=== PATIENT | female | born 1970 | race African-American/Black ===

== ENCOUNTER → 2017-03-24 15:02 | Outpatient (CLI) | payer BC, MEDICAID | END | disposition home or self-care (01) | LOC: D.MRI 15:02 | DX: M25.562 Pain in left knee (principal) ==

== ENCOUNTER 2017-11-02 06:19 | Day surgery (SDC) | payer BC, MEDICAID ==
[2017-10-30 10:03] LABS: HEMATOCRIT 37.7 % (36.0-48.0); HEMOGLOBIN 12.4 g/dL (12-16); MCHC 32.9 g/dL (31.0-37.0); MCV 94.3 fL (80.0-100.0); MEAN PLATELET VOLUME 8.7 fL (7.4-10.4); RDW 11.8 % (11.5-14.5); WBC 4.1 10x3/uL (4.8-10.8)
[~2017-11-02] VITALS: Ht 172.7 cm; Wt 99.8 kg
[2017-11-02 06:07] VITALS: BP 122/89; Ht 172.7 cm; Wt 99.8 kg
[2017-11-02] MEDS ORDERED: MEPERIDINE HCL50 MG PO (08:29)
--- NOTE | 2017-11-02 10:55 | NUR ---
1050 DR. LORI VILLEGAS.
--- NOTE | 2017-11-02 11:33 | NUR ---
1120 DC INSTS GIVEN, VOICED UNDERSTANDING, RX GIVEN, VOICED UNDERSTANDING. 1130 CRUTCHES DELIVERED, STATES KNOWS HOW TO USE THESE, RELEASED IN WC WITH ESCORT.
--- NOTE | 2017-11-02 12:23 | OP ---
PATIENT NAME: VASU MAN MEDICAL RECORD: [id number] :72 LOCATION:[facility] ADMISSION DATE: SURGEON: RUTH SANDOVAL MD DATE OF OPERATION: 11/02/2017 PREOPERATIVE DIAGNOSIS: Medial meniscus tear of the left knee with Maddox's cyst. POSTOPERATIVE DIAGNOSIS: Medial meniscus tear of the left knee with Maddox's cyst. PROCEDURE: Arthroscopic partial medial meniscectomy with decompression of Maddox's cyst. SURGEON: Ruth Sandoval MD ANESTHESIA: General. INTRAOPERATIVE COMPLICATIONS: None. 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 It did appear to be a meniscal caused. There was no tibial chondromalacia. OPERATIVE SUMMARY IN DETAIL: After obtaining the appropriate preoperative orthopedic surgery consent as well as anesthetic consultation, evaluation and clearance, the patient was brought to the operating room and placed on the operating table in supine position. After general laryngeal mask was administered, tourniquet was placed about the proximal aspect of the right lower extremity. Right lower extremity was prepped and draped in routine sterile fashion. The leg was elevated and exsanguinated, tourniquet inflated to 350 mmHg. Routine inferolateral portal was established followed by superomedial portal and inferomedial portal. Diagnostic arthroscopy did reveal the above findings. Combination of arthroscopic resector as well as a meniscotome was utilized to debride the posterolateral corner of the medial meniscus back to stable meniscal elements. A small chondroplasty was performed to stabilize the unstable appearing chondral areas. Having completed this, the knee was insufflated with 30 cc of 0.25% Marcaine with epinephrine and 80 mg of Depo-Medrol. Arthroscopy portals were closed in routine interrupted fashion using 4-0 Prolene. Sterile dressings were applied. The patient was awakened and taken to recovery room in stable condition. All final needle and sponge counts were correct. TRANSINT:[id number] Voice Confirmation ID: [id number] DOCUMENT ID: [id number] RUTH SANDOVAL MD at 1223 CC: [id number] DICTATION DATE: 11/02/17 0834 GENERAL COUNSEL: 11/02/17 1047 [facility] [place] 11/02/17 [facility] [address] [place] [id number]
== END 2017-11-02 11:40 | disposition home or self-care (01) ==
LOC: D.OPS 06:19 → D.PAN 07:30 → D.OPS 11:40
PROVIDERS: Anesthesiology
DX: S83.242A Other tear of medial meniscus, current injury, left knee, initial encounter (principal); M71.22 Synovial cyst of popliteal space [Baker], left knee; M94.262 Chondromalacia, left knee; Z01.812 Encounter for preprocedural laboratory examination